=== PATIENT | female | born 1935 | race Hispanic/Latino ===

== ENCOUNTER 2020-05-20 00:38 | Emergency (ER) | payer MEDICARE ==
[2020-05-20] MEDS ORDERED: Boostrix 0.5 ML VIAL ONE ×2 (01:07→01:23)
[2020-05-20] MEDS ORDERED: Lidocaine 1% w/Epinephrine 1:100K 20 ML VIAL ONE (02:16)
--- NOTE | 2020-05-20 07:47 | CT ---
PRELIMINARY REPORT/[facility]/EMERGENCY AFTER HOURS PROCEDURE: EXAM: CT Head Without Intravenous Contrast. 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 PT HIT BACK OF HEAD AND C/O PAIN ON BACK OF HEAD . SMALL LAC ON BACK OF HEAD, BLEEDING CONTROLLED. DENIES LOC. LOWER BACK PAIN TECHNIQUE: Axial computed tomography images of the head/brain without intravenous contrast. COMPARISON: None provided. FINDINGS: BRAIN: No acute intraparenchymal hemorrhage. No mass lesion. No CT evidence for acute territorial inf arct. No midline shift or extra-axial collection. Mild white matter change. VENTRICLES: No hydrocephalus. ORBITS: The orbits are unremarkable. SINUSES AND MASTOIDS: The paranasal sinuses and mastoid air cells are clear. SOFT TISSUES: Right parietal scalp laceration. No radiopaque foreign body is seen. BONES: No acute skull fracture. IMPRESSION: No acute intracranial traumatic injury. ELECTRONICALLY SIGNED BY: Hugh Gomez MD May 20, 2020 2:13:11 AM CDT FINAL REPORT: EMERGENCY AFTER HOURS STUDY CT BRAIN NONCONTRAST: DATE: 05/20/2020. TIME: 1:32 AM. HISTORY: An 85-year-old female status post acute blunt head trauma from fall. FINDINGS: There is no evidence of acute intra-axial or extra-axial hemorrhage. There is no midline shift or any other mass effect. There is no extra-axial fluid collection. There is no evidence of obstructive hydrocephalus. Calvarium is intact. There is diffuse brain parenchymal volume loss. There are low att enuation areas in the white matter. These are nonspecific, but in a patient of this age, they are probably chronic ischemic white matter changes due to microvascular atherosclerosis. Agree with preli minary report by [facility]. IMPRESSION: 1) No acute intracranial findings. 2) involutional changes and chronic ischemic white matter changes. Transcribed Date/Time: 05/20/2020 7:52 AM
--- NOTE | 2020-05-20 07:50 | CT ---
PRELIMINARY REORT/[facility]/EMERGENCY AFTER HOURS PROCEDURE: EXAM: CT Cervical Spine Without Intravenous Contrast. 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 PT HIT BACK OF HEAD AND C/O PAIN ON BACK OF HEAD . SMALL LAC ON BACK OF HEAD, BLEEDING CONTROLLED. DENIES LOC. LOWER BACK PAIN TECHNIQUE: Axial computed tomography images of the cervical spine without intravenous contrast. Sagit dorota and coronal reformations performed. COMPARISON: None provided. FINDINGS: BONES: No acute fracture or focal osseous lesion. Bony alignment is anatomic. Osteopenia. DISCS / DEGENERATIVE CHANGES: Degenerative disc disease with foraminal narrowing and spinal stenosis at several levels. SOFT TISSUES: No prevertebral soft tissue swelling. No apical pneumothorax. Biapical mild pleural parenchymal scarring. IMPRESSION: No acute cervical spine fracture. ELECTRONICALLY SIGNED BY: Hugh Gomez MD May 20, 2020 2:20:21 AM CDT FINAL REPORT EMERGENCY AFTER HOURS STUDY CT CERVICAL SPINE NONCONTRAST: DATE:05/20/2020 TIME: 1:31 AM. HISTORY: cervical trauma: An 85-year-old female status post fall FINDINGS: There are no jumped or perched facets. There is no evidence of acute fracture. The vertebral body hei ghts are maintained. There is no prevertebral soft tissue swelling. Agree with preliminary report by [facility]. IMPRESSION: No evidence of acute fracture or acute traumatic subluxation. Transcribed Date/Time: 05/20/2020 7:56 AM
--- NOTE | 2020-05-20 08:40 | CT ---
PRELIMINARY REPORT/[facility]/EMERGENCY AFTER HOURS PROCEDURE: EXAM: CT Lumbar Spine Without Intravenous Contrast. 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 PT HIT BACK OF HEAD AND C/O PAIN ON BACK OF HEAD. SMALL LAC ON BRUNILDA K OF HEAD, BLEEDING CONTROLLED. DENIES LOC. LOWER BACK PAIN TECHNIQUE: Axial computed tomography images of the lumbar spine without intravenous contrast. Sagittal and coron al reformations performed. COMPARISON: None provided. FINDINGS: BONES: Old compression fractures of L1-L4. Mild right curvature. DISCS/DEGENERATIVE CHANGES: Degenerative disc disease with foraminal narrowing and spinal stenosis at most lumbar levels. SOFT TISSUES: The paraspinal soft tissues are unremarkable. Prominent atherosclerosis. IMPRESSION: No acute lumbar spine fracture. Old compression fractures of L1-L4. Mild right curvature. Degenerative disc disease with foraminal narrowing and spinal stenosis at most lumbar levels. ELECTRONICALLY SIGNED BY: Hugh Gomez MD May 20, 2020 2:25:43 AM CDT This report is intended for review by the ordering physician only, in accordance of law. If you recei ve this report in error, please call [facility] at [phone]. FINAL REPORT CT LUMBAR SPINE: Mild anterior wedging of L1. Moderately severe compression deformities at L2, L3, and L4 vertebrae. L5 vertebra maintains height. There is osteopenia. Degenerative disk changes with vacuum phenomenon at L1-2. These compression deformities are most likely old as noted on the preliminary report. The L2 rabia wilmer is somewhat age-indeterminate. There is retropulsion of a posterior superior corner of the L2 v ertebra which does compress the thecal sac. This results in mild to moderate central canal stenosis. I am in agreement with the preliminary report. POS: [facility]
== END 2020-05-20 02:37 | disposition home or self-care (01) ==
LOC: ERS 00:38
DX: S01.01XA Laceration without foreign body of scalp, initial encounter (principal); M54.5 Low back pain; I10 Essential (primary) hypertension; Z79.899 Other long term (current) drug therapy; W18.30XA Fall on same level, unspecified, initial encounter
CPT/HCPCS: 12001; 70450; 72125; 72131; 90471; 90715

== ENCOUNTER 2020-05-27 19:57 | Inpatient (IN) | payer MEDICARE, OTHER ==
[2020-05-27 20:49] LABS: #Basophils 0.1 thou/uL (0.0-0.2); #Eosinphils 0.1 thou/uL (0.0-0.7); #Lymphocytes 1.3 thou/uL (1.20-3.40); #Monocytes 0.6 thou/uL (0.11-0.59); #Neutrophils 6.2 thou/uL (1.40-6.50); %Basophils 0.7 % (0.0-1.0); %Eosinophils 1.8 % (0.0-10.0); %Lymphocytes 15.4 % (21.0-51.0); %Monocytes 6.9 % (0.0-10.0); %Neutrophils 75.2 % (42.0-75.0); Hemoglobin 12.6 g/dL (12.0-16.0); Mean Corpuscular HGB CONC 34.1 g/dL (32.0-36.0); Mean Corpuscular Hemoglobin 31.5 pg (27.0-31.0); Mean Corpuscular Volume 92.3 fL (78.0-98.0); Mean Platelet Volume 6.2 fL (7.4-10.4); Platelet Count 348 thou/uL (130-400); RBC Distribution Width 10.9 % (11.5-14.5); Red Blood Cell (RBC) Count 3.99 mill/uL (4.20-5.40); White Blood Cell (WBC) Count 8.3 thou/uL (4.8-10.8)
[2020-05-27] MEDS ORDERED: Ondansetron PF 4 MG/2 ML Vial ONE (20:53)
[2020-05-27] MEDS ORDERED: Ketamine 50 MG/ML (10ML VIAL) ONE (21:00)
[2020-05-27] MEDS ORDERED: Rocuronium Bromide 10 MG/ML (10ML VIAL) ONE (21:00)
[2020-05-27] MEDS ORDERED: EPINEPHrine 1 MG/10 ML Abboject SYRINGE ONE (21:07)
[2020-05-27 21:12] LABS: ALT (SGPT) 10 U/L (8-55); AST (SGOT) 22 U/L (5-34); Albumin 4.2 g/dL (3.4-4.8); Alkaline Phosphatase 73 U/L (40-110); Anion Gap 14 mmol/L (10-20); BUN (Urea Nitrogen) 14 mg/dL (9.8-20.1); Bilirubin, Total 0.4 mg/dL (0.2-1.2); Calc. Creatinine Clearance 0 mL/min (70-130); Carbon Dioxide 27 mmol/L (23-31); Chloride 97 mmol/L (98-107); Estimated GFR-MDRD 73; Globulin 3.1 g/dL (2.4-3.5); Glucose 114 mg/dL (83-110); Potassium 3.5 mmol/L (3.5-5.1); Protein, Total 7.3 g/dL (6.0-8.3); Sodium 134 mmol/L (136-145)
--- NOTE | 2020-05-27 21:23 | CT ---
CT OF BRAIN PERFORMED WITHOUT CONTRAST ENHANCEMENT: 05/27/20 HISTORY: Fall with head injury. COMPARISON: A 05/20/20 study. There has been development of a large intraparenchymal hemorrhage which is in the left posterior fron dorota region. It measures 5.2 cm in maximum dimension. There is a fairly extensive interventricular blo od also noted. There is no significant mass effect associated with this. The mastoid air cells and vi sualized sinuses are clear. IMPRESSION: Large intraparenchymal hemorrhage involving the left posterior frontal region also with moderate inte rventricular blood. No significant shift of midline structures seen at this time. Findings telephoned to Dr. Marr. [place]: [facility]
--- NOTE | 2020-05-27 21:27 | CT ---
CT OF CERVICAL SPINE PERFORMED WITHOUT CONTRAST ENHANCEMENT: 05/27/20 HISTORY: Fall with neck pain. Vertebral bodies are normal in height. Disc spaces are relatively well preserved. Minimal disc narrow ing in the lower cervical spine. Degenerative facet changes. The facets are in normal alignment. The re is no significant canal stenosis and no CT evidence of fracture. Carotid bulb calcifications are s een. Lung apices are clear. IMPRESSION: No CT evidence of fracture of the cervical spine. POS: [facility]
[2020-05-27] MEDS ORDERED: niCARdipine 25 MG in Sodium Chloride 0.9% 250 ML 240 ML IVPB SCH (21:30)
--- NOTE | 2020-05-27 21:48 | RAD ---
PORTABLE CHEST: 05/27/20 HISTORY: Intubation. Endotracheal and NG tubes are in satisfactory position. Heart size is within normal limits. There are atherosclerotic changes of the aorta. Lungs are clear of any infiltrative process. IMPRESSION: No acute infiltrates. Endotracheal and NG tubes in satisfactory position. POS: [facility]
[2020-05-27] MEDS ORDERED: Electrolyte Replacement Protoc 1 EACH EACH IVPB PRN (21:50)
[2020-05-27] MEDS ORDERED: Ondansetron PF 4 MG/2 ML Vial IVP PRN (21:50)
[2020-05-27] MEDS ORDERED: Docusate 100 MG CAP PO PRN (21:50)
[2020-05-27] MEDS ORDERED: niCARdipine 25 MG in Sodium Chloride 0.9% 250 ML 250 ML IVPB PRN (21:50)
[2020-05-27] MEDS ORDERED: Milk Of Magnesia 30 ML UDCUP PO PRN (21:50)
[2020-05-27] MEDS ORDERED: Bisacodyl 10 MG SUPP PR PRN (21:50)
--- NOTE | 2020-05-27 21:50 | RAD ---
AP PELVIS: 05/27/20 HISTORY: Fall. Bones are demineralized. The pelvic ring is intact. Arthritic changes of the lower lumbar spine are s een. IMPRESSION: No evidence of fracture. POS: [facility]
[2020-05-27 21:53] LABS: Actual Bicarbonate (HCO3a) 25.3 mEq/L (22-28); Analyzer IN Cardio ER; Base Excess (BEa) 3.7 mEq/L (-2.0 to +3.0); CO2 Tension 29.4 mmHg (35.0-45.0); Calcium, Ionized (arterial) 1.12 mmol/L (1.12-1.30); Carboxyhemoglobin (COHb) 0.3 gm% (0.0-3.0); Hemoglobin (Hb) 13.1 g/dL (12.0-16.0); O2 Tension (PaO2), arterial 185.4 mmHg (> 60.0); Potassium - ABG Lab 2.99 mmol/L (3.70-5.30)
[2020-05-27 22:11] LABS: Bilirubin Negative (Negative); Blood, Urine Negative (Negative); Clarity Clear (Clear); Glucose, Urine (Dipstick) Normal (Negative); Ketone, Urine Negative (Negative); Leukocyte Negative Leu/uL (Negative); Nitrite Negative (Negative); Protein, Urine (Dipstick) Negative (Neg-Trace); Specific Gravity, Urine 1.011 (1.002-1.036); Urobilinogen Normal mg/dL (Less than 2)
--- NOTE | 2020-05-27 22:51 | HP ---
HISTORY OF PRESENT ILLNESS: Ms. Dominguez is an 85-year-old woman who presents to the emergency department via EMS after being found down unresponsive at home by her daughter earlier this evening and reported that the patient had a fall 1 week ago that resulted in a laceration to the occipital scalp. Lower Brule were placed and removed this morning and she had been doing quite well. Head CT from a week ago shows no active areas of hemorrhage. She also states that reportedly the patient has history of hypertension and takes medications for this purpose. She is not on any blood thinning medications according to family, although etodolac is in her medical history. CT scan of the brain was performed upon presentation to the emergency department, it shows a large left frontoparietal hemorrhage extending from the deep white matter structures with extension of the bilateral lateral ventricles, hemorrhage volume is estimated at 40 to 48 mL. There is subtle midline shift and minimal surrounding vasogenic edema. The patient's systolic pressures upon presentation is 185 systolic, but has been started on Cardene and we had seen a steady drop to a point where upon my presentation at bedside, she is in the 170s and then the second reading in the 160s. PAST MEDICAL HISTORY: Significant for hypertension and chronic pain syndrome. ALLERGIES: NO KNOWN DRUG ALLERGIES. CURRENT MEDICATIONS: Etodolac. PHYSICAL EXAMINATION: NEUROLOGIC: The patient is intubated with no motor interaction of brainstem reflexes, although the patient did receive paralytics for rapid sequence intubation briefly before my arrival to the emergency department, so this time, we do not have a reliable neurologic examination for baseline comparison. GCS for this purpose would grade a 3T. ASSESSMENT: Acute intraventricular and intracerebral hemorrhage. PLAN: I had a raoul discussion with family members at bedside, 2 daughters and then other family on phone. This likely represents a brain hemorrhage and the patient's outcome although guarded at the moment, is likely poor potentially fatal. I discussed her prognostic indicators given her age and size of hemorrhage and location of this unfortunately points a poor outcome. I did discuss plan for this evening, which would be to admit to the ICU with close monitoring q.1 hour neuro checks, maintenance of systolic blood pressures below 140 and repeat scanning 6 hours from now. I had a brief discussion regarding possible development of hydrocephalus and need for external ventricular drain, but we will cross the bridge if we have to. I do not believe if there is any additional surgical intervention is warranted for this patient's care. We will consult the hospitalist service and then the critical care team service for her stay in the hospital for assistance in ventilator management more in-depth discussion with family regarding the patient's care tomorrow. Once her legs have worn off, we will have a repeat scan. Job ID: [id number]
[2020-05-27 23:13] LABS: pH, Arterial 7.55 (7.35-7.45)
[2020-05-27 23:14] LABS: Puncture Site LRA
[2020-05-27] MEDS: Sodium Chloride 0.9% 1,000 ML IV SCH (23:30)
[2020-05-28] MEDS: Diltiazem HCl 125 MG, Admixture Fee 1 EACH in Sodium Chloride 0.9% 100 ML IVPB SCH (01:00)
[2020-05-28] MEDS ORDERED: Sodium Chloride 0.9% 500 ML IV SCH (01:15)
[2020-05-28] MEDS ORDERED: Sodium Chloride 0.9% 500 ML IVPB SCH (01:15)
--- NOTE | 2020-05-28 01:40 | PDOC.CONS ---
- Consultation Encounter Date: 05/28/20 Encounter Time: 01:33 Consulting provider: Rosailo Corley Reason for consult: Rapid heart rate. CC: Unresponsiveness HPI: 85-year-old woman with a history of hypertension and chronic pain syndrome brought to the emergency department because patient was found unresponsive at home. She is status post fall a week prior. CT head and in the emergency department demonstrated large left frontoparietal hemorrhage extending into the lateral ventricle with subtle midline shift and surrounding vasogenic edema. Patient subsequently admitted to the neurosurgery service. She was started on nicardipine drip for elevated systolic blood pressure up to the 180s. Consult is placed for the hospitalist team to help manage rapid heart rate. Patient blood pressure has improved to the point she was borderline hypotensive when I saw her in the CCU. She is of the nicardipine drip. Heart rate is in the 180s. She is intubated and on mechanical ventilation. EKG demonstrated wide complex tachycardia. Patient remained unresponsive. Past medical history: Hypertension, chronic pain syndrome Past surgical history: None Allergies: No known drug allergies Medications: Bisacodyl (Bisacodyl 10 Mg Supp) 10 mg VA DAILYPRN PRN PRN Reason: Constipation Docusate Sodium (Docusate 100 Mg Cap) 100 mg PO BIDPRN PRN PRN Reason: Constipation Famotidine (Famotidine/Pf 20 Mg/2ml Vial) 20 mg SLOW IVP Q12HR ANGIE Nicardipine HCl 25 mg/ Sodium (Chloride) 250 mls @ 25 mls/hr IVPB INF ANGIE; Protocol Sodium Chloride (Normal Saline 0.9%) 1,000 mls @ 65 mls/hr IV .[id number] ANGIE Last Admin: 05/27/20 23:30 Dose: 1,000 mls Documented by: Nicardipine HCl 25 mg/ Sodium (Chloride) 260 mls @ 0 mls/hr IVPB INF PRN; Protocol PRN Reason: SBP > 140 Diltiazem HCl 125 mg/Miscellaneous Medication 1 each/ Sodium Chloride 125 mls @ 0 mls/hr IVPB INF ANGIE; Protocol Last Admin: 05/28/20 01:00 Dose: 125 mls Documented by: Fentanyl Citrate 2,000 mcg/ (Sodium Chloride) 100 mls @ 0 mls/hr IV INF ANGIE; Protocol Stop: 06/27/20 04:45 Fentanyl Citrate (Fentanyl Bolus) 250 mls @ 0 mls/hr IVPB PRN PRN PRN Reason: Breakthrough pain/agitation Stop: 06/27/20 04:45 Lorazepam (Lorazepam 2 Mg/Ml Vial) 2 mg SLOW IVP Q1H PRN PRN Reason: Breakthrough agitation Stop: 06/27/20 04:45 Magnesium Hydroxide (Milk Of Magnesia 30 Ml Udcup) 30 ml PO BIDPRN PRN PRN Reason: Constipation Miscellaneous Medication (Electrolyte Replacement Protoc 1 Each Each) 1 each IVPB PRN PRN PRN Reason: ELECTROLYTE Morphine Sulfate (Morphine 2 Mg/Ml Vial) 2 mg SLOW IVP Q1H PRN PRN Reason: Breakthrough Pain/Agitation Stop: 06/27/20 04:45 Ondansetron HCl (Ondansetron Pf 4 Mg/2 Ml Vial) 4 mg IVP BIDPRN PRN PRN Reason: Nausea/Vomiting Propofol (Propofol 1,000 Mg/100 Ml Vial) 1,000 mg IV INF PRN; Protocol PRN Reason: TO ACHIEVE GOAL RASS Stop: 06/27/20 04:45 Last Admin: 05/28/20 04:35 Dose: 1,000 mg Documented by: Propofol (Propofol Bolus 1,000 Mg/100 Ml Vial) 20 mg IV Q5MIN PRN PRN Reason: BREAKTHROUGH AGITATION Stop: 06/27/20 04:45 Sodium Chloride (Flush - Normal Saline 10 Ml Syringe) 10 ml IVF PRN PRN PRN Reason: Saline Flush Family history: Reviewed and noncontributory Social history: Non-smoker, does not drink alcohol. No illicit drug use. Review of systems Unable to obtain due to unresponsiveness. Physical examination: General: Unresponsive, not in acute distress. Frail-appearing. HEENT: Intubated and on mechanical ventilation. PERRLA, anicteric sclera. Neck: Supple, no elevated JVD. Lungs: Clear to auscultation bilaterally. No rhonchi, no rales, no crackles. Heart: S1-S2 heard, rapid, no murmur no gallop no rub. Abdomen: Soft, nontender, nondistended, no hepatosplenomegaly. Extremities: No pedal edema. No deformity. Neuro: Unresponsive, moves all extremities spontaneously. Psychiatry: Unresponsive. Not agitated. Skin: No rashes, no lesions. A/P: 1. Wide-complex tachycardia: Likely reactive. Patient is off nicardipine drip. We will give a trial of normal saline bolus followed by Cardizem drip if no improvement. Obtain echocardiogram. Would recommend cardiology consult. Optimize electrolytes. Check magnesium level and replete accordingly. 2. Intracranial/intracerebral hemorrhage: Management per primary team. Family is leaning towards no escalation of care. May need palliative care consult to discuss goals of care. 3. Hypertension: Blood pressure improved with nicardipine drip and now she is borderline hypotensive. Trial of normal saline bolus. Monitor blood pressure closely.
[2020-05-28 03:46] LABS: #Lymphocytes 0.5 thou/uL (1.20-3.40); #Monocytes 0.5 thou/uL (0.11-0.59); #Neutrophils 12.4 thou/uL (1.40-6.50); %Basophils 0.1 % (0.0-1.0); %Eosinophils 0.1 % (0.0-10.0); %Lymphocytes 3.5 % (21.0-51.0); %Monocytes 3.7 % (0.0-10.0); %Neutrophils 92.6 % (42.0-75.0); Hemoglobin 12.2 g/dL (12.0-16.0); Mean Corpuscular HGB CONC 35.1 g/dL (32.0-36.0); Mean Corpuscular Hemoglobin 32.2 pg (27.0-31.0); Mean Corpuscular Volume 91.7 fL (78.0-98.0); Mean Platelet Volume 6.3 fL (7.4-10.4); Platelet Count 335 thou/uL (130-400); RBC Distribution Width 10.9 % (11.5-14.5); Red Blood Cell (RBC) Count 3.78 mill/uL (4.20-5.40); White Blood Cell (WBC) Count 13.4 thou/uL (4.8-10.8)
[2020-05-28 03:59] LABS: Anion Gap 15 mmol/L (10-20); BUN (Urea Nitrogen) 13 mg/dL (9.8-20.1); Calc. Creatinine Clearance 39 mL/min (70-130); Calcium 9.1 mg/dL (7.8-10.44); Carbon Dioxide 25 mmol/L (23-31); Chloride 97 mmol/L (98-107); Estimated GFR-MDRD 73; Glucose 154 mg/dL (83-110); Potassium 3.1 mmol/L (3.5-5.1); Sodium 134 mmol/L (136-145)
[2020-05-28] MEDS ORDERED: Propofol 1,000 MG/100 ML VIAL IV ONE (04:29)
[2020-05-28] MEDS: Propofol 1,000 MG/100 ML VIAL IV PRN ×2 (04:35→19:37)
[2020-05-28] MEDS ORDERED: Propofol BOLUS 1,000 MG/100 ML VIAL IV PRN (04:45)
[2020-05-28] MEDS ORDERED: Fentanyl BOLUS 250 ML IVPB PRN (04:45)
[2020-05-28] MEDS ORDERED: fentaNYL Citrate/PF 2,000 MCG in Sodium Chloride 0.9% 60 ML IV SCH (04:45)
[2020-05-28] MEDS ORDERED: Magnesium 2 GM/50 ML 2 GM in Premix Bag 1 BAG IVPB SCH (06:30)
--- NOTE | 2020-05-28 07:28 | CT ---
PRELIMINARY REPORT/[facility]/EMERGENCY AFTER HOURS PROCEDURE EXAM: CT Head Without Intravenous Contrast. CLINICAL HISTORY: FOLLOW UP Intracerebral hemorrhagic stroke TECHNIQUE: Axial computed tomography images of the head/brain without intravenous contrast. COMPARISON: CTSR - CT BRAIN WO CON - 05/27/2020 08:[address] - CT BRAIN WO CON - 05/20/2020 01:28 AM CDT FINDINGS: BRAIN: Again seen is a large left intraparenchymal hemorrhage measuring up to 5.2 cm in maximum direction, i n the left frontoparietal lobe extending into the region of the left basal ganglia. There is surrounding vasogenic edema and effacement of the sulci. There is no significant midline shift. Again seen are foci of subarachnoid hemorrhage at the last vertex. VENTRICLES: There is a large amount of intraventricular hemorrhage in the bilateral lateral ventricles. There is no change in morphology of the ventricles compared to prior. No hydronephrosis. ORBITS: The orbits are unremarkable. SINUSES AND MASTOIDS: The paranasal sinuses and mastoid air cells are clear. SOFT TISSUES: No significant facial or scalp soft tissue swelling evident. No radiopaque foreign body is seen. BONES: No acute skull fracture. IMPRESSION: Large left intraparenchymal hemorrhage with intraventricular extension. No significant change compar ed to 05/27/2020. No new intracranial hemorrhage. No hydrocephalus. ELECTRONICALLY SIGNED BY: Taylor Stephenson MD May 28, 2020 4:50:08 AM CDT This report is intended for review by the ordering physician only, in accordance of law. If you recei ve this report in error, please call [facility] at [phone]. FINAL REPORT Exam: Head CT without contrast HISTORY: Hemorrhage. Stroke. COMPARISON: 05/27/2020 FINDINGS: Hemorrhage: Redemonstration of essentially stable intraparenchymal, extra-axial and intraventricular hemorrhage. Brain parenchyma: Stable vasogenic edema as well as chronic small vessel ischemic changes of the whit e matter. There is persistent mass effect upon the left cerebrum. Ventricular system: Stable configuration of ventricular system. Calvarium: Intact. Sinuses and mastoid air cells: Adequate aeration. IMPRESSION: 1. This report is in agreement with initial report by [facility]. 2. Essentially stable intracranial hemorrhage. No significant interval change. Transcribed Date/Time: 05/28/2020 7:49 AM
--- NOTE | 2020-05-28 07:30 | PRG ---
DATE OF SERVICE: 05/28/2020 Ms. Dominguez is an 85-year-old female found unresponsive and down by her family members. She presented to the ER, where she had a head CT, which shows evidence of a large intracerebral hemorrhage on the left frontal and temporal region with intraventricular extension. There is associated mass effect. She is intubated and is currently in the ICU. I did review the evaluation and assessment was performed by Joseph Corley, and agree with his findings. This is a hemorrhage, which is not amenable to surgical treatment. We will maximize medical management and treat it with osmotic agents as necessary. She currently has a very poor neurologic exam and I believe this will be a very difficult hemorrhage for her to recover from. Job ID: [id number] [facility]
[2020-05-28] MEDS: Potassium Chloride 20 MEQ in Premix Bag 1 BAG IVPB SCH ×2 (08:04→10:03)
[2020-05-28 08:09] LABS: Actual Bicarbonate (HCO3a) 22.6 mEq/L (22-28); Base Excess (BEa) 0.4 mEq/L (-2.0 to +3.0); CO2 Tension 29.1 mmHg (35.0-45.0); Calcium, Ionized (arterial) 1.11 mmol/L (1.12-1.30); Carboxyhemoglobin (COHb) 0.3 gm% (0.0-3.0); Hemoglobin (Hb) 12.3 g/dL (12.0-16.0); O2 Tension (PaO2), arterial 187.2 mmHg (> 60.0); Potassium - ABG Lab 3.44 mmol/L (3.70-5.30); pH, Arterial 7.51 (7.35-7.45)
[2020-05-28] MEDS: Famotidine/PF 20 mg/2ml Vial SLOW IVP SCH (08:59)
[2020-05-28] MEDS: niCARdipine 25 MG in Sodium Chloride 0.9% 250 ML 240 ML IVPB PRN ×3 (10:12→17:38)
[2020-05-28 10:55] LABS: ALV-art Gradient 61.625 mmHg (0-20)
[2020-05-28] MEDS: Sodium Chloride 0.9% 1,000 ML IV SCH (12:47)
--- NOTE | 2020-05-28 15:35 | PDOC.HOSPP ---
- Subjective Subjective: Remains intubated. Discussed with daughter at bedside. They are considering comfort cares. - Objective Vital Signs & Weight: Vital Signs (12 hours) Temp Pulse Resp BP Pulse Ox 05/28/20 14:54 75 118/46 L 05/28/20 14:00 14 05/28/20 12:00 98.4 F 14 05/28/20 10:43 75 126/53 L 05/28/20 10:00 11 L 05/28/20 08:00 17 100 05/28/20 07:53 92 125/58 L 05/28/20 07:00 99.3 F 05/28/20 06:00 12 05/28/20 04:00 25 H Weight Admit Weight 97 lb Weight 97 lb 7.109 oz Most Recent Monitor Data Heart Rate from ECG 85 NIBP 124/51 NIBP BP-Mean 75 Respiration from ECG 15 SpO2 100 I&O: 05/27/20 05/28/20 05/29/20 06:59 06:59 06:59 Intake Total 1141.3 0 Output Total 1035 335 Balance 106.3 -335 Result Diagrams: 05/28/20 03:29 05/28/20 03:29 Additional Labs: Accuchecks 05/28/20 05/28/20 05/27/20 12:07 01:54 20:10 POC Glucose 139 H 143 H 106 H Radiology Reviewed by me: Yes EKG Reviewed by me: Yes Hospitalist ROS - Medication Medications: Active Medications Generic Name Dose Route Start Last Admin Trade Name Freq PRN Reason Stop Dose Admin Famotidine 20 mg 05/28/20 09:00 05/28/20 08:59 Famotidine/Pf 20 Mg/2ml Vial SLOW IVP 20 mg 0900 ANGIE Administration Sodium Chloride 1,000 mls @ 65 mls/hr 05/27/20 22:00 05/28/20 12:47 Normal Saline 0.9% IV 1,000 mls .[id number] ANGIE Administration Diltiazem HCl 125 mg/ 125 mls @ 0 mls/hr 05/28/20 00:45 05/28/20 01:00 Miscellaneous Medication 1 IVPB 125 mls each/ Sodium Chloride INF ANGIE Administration Protocol As Directed Nicardipine HCl 25 mg/ Sodium 250 mls @ 0 mls/hr 05/28/20 07:30 05/28/20 12:56 Chloride IVPB 250 mls INF PRN Administration SBP > 140 Protocol Titrate Propofol 1,000 mg 05/28/20 04:45 05/28/20 04:35 Propofol 1,000 Mg/100 Ml Vial IV 06/27/20 04:45 1,000 mg INF PRN Administration TO ACHIEVE GOAL RASS Protocol - Exam General - other findings: pt remains intubated Eye: PERRL ENT: normocephalic atraumatic Heart: RRR Respiratory: CTAB Gastrointestinal: soft Extremities: no cyanosis Skin: normal turgor Neurological: cranial nerve grossly intact Musculoskeletal: normal tone Psychiatric: normal affect Hosp A/P - Plan This is an unfortunate 85 years old female who has significant past medical history of hypertension who was found unresponsive at home, she was status post fall about weeks ago prior to admission. Initial work-up in the ED, CT brain showed large intraparenchymal parenchymal hemorrhage involving the left posterior frontal region associated with moderate intraventricular blood. Patient was admitted to ICU under neurosurgery service. Hospitalist was consulted for wide-complex tachycardia. Intracranial hemorrhage --not amenable for surgical intervention per neurosurgery --family is considering comfort cares. will consult palliative care to address goal of cares. --poor prognosis Wide-complex tachycardia - resolved. --rate controlled with Cardizem gtt. Dion repleted. NSR on tele. --monitor. Labs in AM Uncontrolled hypertension --pt is now off cardene gtt. BP now well controlled. Acute hypoxic respiratory failure --Pul consult to help with vent mgt. DVT ppx: Contraindicated GI ppx: Continue Pepcid Code Status: DNR Anticipated Dispo: TBD, family is considering comfort cares.
[2020-05-28 16:26] LABS: Potassium 4.7 mmol/L (3.5-5.1)
--- NOTE | 2020-05-28 17:31 | EKG ---
Test Reason : STAT Blood Pressure : / mmHG Vent. Rate : 186 BPM Atrial Rate : 187 BPM P-R Int : 000 ms QRS Dur : 144 ms QT Int : 248 ms P-R-T Axes : 000 079 053 degrees QTc Int : [address] depression Abnormal ECG When compared with ECG of 28-MAY-2020 00:44, (Unconfirmed) No significant change was found Confirmed by DR. Raysa MONTIEL ([id number]) on 05/28/2020 5:31:36 PM Referred By: ANGEL Confirmed By:DR. Raysa MONTIEL
--- NOTE | 2020-05-28 20:58 | CON ---
DATE OF CONSULTATION: 05/28/2020 HISTORY OF PRESENT ILLNESS: Sandra Dominguez is an 85-year-old female who has a parenchymal brain hemorrhage with ventricular extension. Apparently, she was found down by her daughter. She apparently fell a week earlier, but followup head CT with head injury did not show any hemorrhage. She is not cooperative to exam or questionings. She was intubated. PAST MEDICAL HISTORY: Remarkable for hypertension. FAMILY HISTORY: Negative for lung disease in early age. She is a nonsmoker and nondrinker. REVIEW OF SYSTEMS: Not obtainable. PHYSICAL EXAMINATION: VITAL SIGNS: She is afebrile, respiratory rate is 20, FiO2 is 40, blood pressure 124/73, heart rate is in the 90s. GENERAL: She does not open her eyes to voice or command. sternal rub. She has minimal manipulation of her endotracheal tube. LUNGS: Remarkable for coarse equal breath sounds. HEART: Regular rhythm. ABDOMEN: Soft. EXTREMITIES: Without edema. Neurosurgeons have stated she has very poor prognosis. LABORATORY DATA: White count 13.4, hemoglobin 12.2, and platelets 335. Sodium 134, potassium 3.1, chloride 97, bicarb 25, BUN 13, creatinine 0.76. PH 7.51, pCO2 29, and PO2 187. IMPRESSION: Brain hemorrhage with a very poor prognosis. Family wants her to be a DNR. I met with one daughter at bedside and I met with all the daughters plus a sister and answered all their questions. There are two people on 2 different phones listening in as well. They want to get together as a family and decide about withdrawal of support. They all quickly acknowledge that she would not want to continue like this. I have explained that if they were to proceed aggressively, she would have a trach, a PEG, long-term care hospitalization followed by retirement if she survived the initial part of this. They all acknowledge that she would not want that. CRITICAL CARE TIME: 30 minutes, independent with family meeting. Job ID: [id number] [facility]
[2020-05-29 04:18] LABS: Anion Gap 12 mmol/L (10-20); BUN (Urea Nitrogen) 10 mg/dL (9.8-20.1); Calc. Creatinine Clearance 50 mL/min (70-130); Calcium 8.5 mg/dL (7.8-10.44); Carbon Dioxide 22 mmol/L (23-31); Chloride 104 mmol/L (98-107); Estimated GFR-MDRD Greater than 90; Glucose 122 mg/dL (83-110); Potassium 3.7 mmol/L (3.5-5.1); Sodium 134 mmol/L (136-145)
[2020-05-29 04:56] VITALS: BMI 18.0
[2020-05-29] MEDS: Sodium Chloride 0.9% 1,000 ML IV SCH ×2 (08:15→20:37)
[2020-05-29] MEDS: Famotidine/PF 20 mg/2ml Vial SLOW IVP SCH (08:16)
--- NOTE | 2020-05-29 08:42 | PRG ---
DATE OF SERVICE: 05/29/2020 Ms. Dominguez is in the 3rd day of her hospital stay following intracerebral and intraventricular hemorrhage. Yesterday, she was much more alert . She is moving left upper extremity, bilateral lower extremities on the right as well. She was not following any commands, but she did have purposeful movement reaching for the tube and shaking her head. She could open the left eye, but not the right. Pupils at that time were equally round and reactive to light. This morning, her propofol is back on, so where she is somewhat less responsive. Gag is intact. Corneal reflex is intact. Pupils are still equally round and reactive to light. She quickly withdraws with all extremities, but does not localize to pain. I still feel that this is likely a terminal hemorrhage, given size, location, and her advanced age. Family has made the patient DNR and is looking to have a more formal conference regarding comfort care measures today. We will continue to follow along. Job ID: [id number]
[2020-05-29] MEDS: Morphine 2 MG/ML VIAL SLOW IVP PRN ×2 (09:58→14:06)
[2020-05-29] MEDS: Diltiazem HCl 125 MG, Admixture Fee 1 EACH in Sodium Chloride 0.9% 100 ML IVPB SCH (11:11)
[2020-05-29 12:46] LABS: SARS-CoV-2 MS2 Positive; SARS-CoV-2 N Gene Negative; SARS-CoV-2 S Gene Negative; SARS-CoV-2 by NAA Not Detected (NotDetected); SARS-CoV-2 orf1ab Negative
--- NOTE | 2020-05-29 13:07 | PRG ---
DATE OF SERVICE: 05/29/2020 SUBJECTIVE: Sandra Dominguez is clinically unchanged. She is mechanically ventilated. Her end polisher came to visit her. Apparently, she squeezed his hands possibly reflexively. He went out to tell the family that she was better. I have explained to the nursing staff to be relayed to the family that she is the same, not better and does not have any chance for getting better quickly if she survives this. OBJECTIVE: VITAL SIGNS: Blood pressure 130/53, heart rate 72, respiratory rates in the high teens. LUNGS: Clear. HEART: Regular rhythm. ABDOMEN: Soft. EXTREMITIES: Without edema. LABORATORY DATA: No new lab today other than electrolytes which are normal with the exception of sodium of 134. No blood gas today. IMPRESSION: Respiratory failure associated with a brain hemorrhage. Family is trying to decide about withdrawal of care. They all agree that she tracheostomy or PEG. She cannot go down the road without tracheostomy or PEG if they want long-term survival, but functional survival is very unlikely. This is relayed to the family multiple times yesterday. Job ID: [id number] [facility]
--- NOTE | 2020-05-29 15:48 | PDOC.HOSPP ---
- Subjective Subjective: Patient was seen examined, discussed with multiple family members at bedside. Also discussed with palliative care team. Family plan to withdraw care later this afternoon when all family members arrived - Objective Vital Signs & Weight: Vital Signs (12 hours) Temp Pulse Resp BP Pulse Ox 05/29/20 14:49 70 125/52 L 05/29/20 14:00 20 05/29/20 13:21 73 139/54 L 05/29/20 12:00 99.8 F H 21 H 05/29/20 11:47 72 138/53 L 05/29/20 10:00 20 05/29/20 08:00 100.1 F H 21 H 100 05/29/20 07:52 84 128/46 L 05/29/20 06:00 15 05/29/20 04:00 99 F 12 Weight Admit Weight 97 lb Weight 98 lb 12.273 oz Most Recent Monitor Data Heart Rate from ECG 67 NIBP 135/54 NIBP BP-Mean 81 Respiration from ECG 19 SpO2 100 I&O: 05/28/20 05/29/20 05/30/20 06:59 06:59 06:59 Intake Total 1141.3 2724 Output Total 1035 1220 370 Balance 106.3 1504 -370 Result Diagrams: 05/28/20 03:29 05/29/20 03:40 Radiology Reviewed by me: Yes EKG Reviewed by me: Yes Hospitalist ROS - Medication Medications: Active Medications Generic Name Dose Route Start Last Admin Trade Name Freq PRN Reason Stop Dose Admin Famotidine 20 mg 05/28/20 09:00 05/29/20 08:16 Famotidine/Pf 20 Mg/2ml Vial SLOW IVP 20 mg 0900 ANGIE Administration Sodium Chloride 1,000 mls @ 65 mls/hr 05/27/20 22:00 05/29/20 08:15 Normal Saline 0.9% IV 1,000 mls .[id number] ANGIE Administration Diltiazem HCl 125 mg/ 125 mls @ 0 mls/hr 05/28/20 00:45 05/29/20 11:11 Miscellaneous Medication 1 IVPB 125 mls each/ Sodium Chloride INF ANGIE Administration Protocol As Directed Nicardipine HCl 25 mg/ Sodium 250 mls @ 0 mls/hr 05/28/20 07:30 05/28/20 17:38 Chloride IVPB 250 mls INF PRN Administration SBP > 140 Protocol Titrate Morphine Sulfate 2 mg 05/28/20 04:45 05/29/20 14:06 Morphine 2 Mg/Ml Vial SLOW IVP 06/27/20 04:45 2 mg Q1H PRN Administration Breakthrough Pain/Agitation Propofol 1,000 mg 05/28/20 04:45 05/28/20 19:37 Propofol 1,000 Mg/100 Ml Vial IV 06/27/20 04:45 1,000 mg INF PRN Administration TO ACHIEVE GOAL RASS Protocol - Exam General - other findings: Patient remained intubated Eye: PERRL ENT: normocephalic atraumatic Neck: supple Heart: RRR Respiratory: CTAB Gastrointestinal: soft Extremities: no cyanosis Skin: normal turgor Neurological - other findings: Intubated and sedated Hosp A/P - Plan This is an unfortunate 85 years old female who has significant past medical history of hypertension who was found unresponsive at home, she was status post fall about weeks ago prior to admission. Initial work-up in the ED, CT brain showed large intraparenchymal parenchymal hemorrhage involving the left posterior frontal region associated with moderate intraventricular blood. Patient was admitted to ICU under neurosurgery service. Hospitalist was consulted for wide-complex tachycardia. Intracranial hemorrhage --not amenable for surgical intervention per neurosurgery --Family decided to withdraw care later this afternoon. Appreciate palliative care team --cont supportive cares until then Wide-complex tachycardia - resolved. --rate controlled with Cardizem gtt. Lytes repleted. NSR on tele. --monitor. Labs in AM Uncontrolled hypertension --pt is now off cardene gtt. BP now well controlled. Acute hypoxic respiratory failure --Pul consult to help with vent mgt. DVT ppx: Contraindicated GI ppx: Continue Pepcid Code Status: DNR Anticipated Dispo: TBD, family is considering comfort cares.
[2020-05-29] MEDS ORDERED: Scopolamine 1.5 mg/72 hour Patch TOP SCH (17:15)
[2020-05-29] MEDS ORDERED: Hyoscyamine Sulfate SL 0.125 mg Tablet SL PRN (17:16)
[2020-05-29] MEDS: Morphine 4 MG/ML VIAL SLOW IVP PRN (20:39)
[2020-05-29] MEDS: Lorazepam 2 MG/ML VIAL SLOW IVP PRN (20:40)
[2020-05-30] MEDS: Lorazepam 2 MG/ML VIAL SLOW IVP PRN ×2 (04:10→15:46)
[2020-05-30] MEDS: Morphine 4 MG/ML VIAL SLOW IVP PRN (04:10)
[2020-05-30] MEDS: Famotidine/PF 20 mg/2ml Vial SLOW IVP SCH (08:38)
[2020-05-30] MEDS: Sodium Chloride 0.9% 1,000 ML IV SCH (11:13)
--- NOTE | 2020-05-30 14:01 | PDOC.HOSPP ---
- Subjective Subjective: Patient was seen examined at bedside. Patient had transitioned to comfort care. Palliative care team at following. Discussed with family members at bedside. Patient appears to be comfortable she is not in acute distress. - Objective Vital Signs & Weight: Vital Signs (12 hours) Temp Pulse Resp BP Pulse Ox 05/30/20 07:58 98.5 F 85 22 H 175/74 H 93 L Weight Admit Weight 97 lb Weight 98 lb 12.273 oz Most Recent Monitor Data Heart Rate from ECG 88 NIBP 144/58 NIBP BP-Mean 86 Respiration from ECG 15 SpO2 84 I&O: 05/29/20 05/30/20 05/31/20 06:59 06:59 06:59 Intake Total 2724 868.2 Output Total 1220 1765 Balance 1504 -896.8 Result Diagrams: 05/28/20 03:29 05/29/20 03:40 Radiology Reviewed by me: Yes EKG Reviewed by me: Yes Hospitalist ROS - Medication Medications: Active Medications Generic Name Dose Route Start Last Admin Trade Name Freq PRN Reason Stop Dose Admin Lorazepam 2 mg 05/28/20 04:45 05/29/20 20:40 Lorazepam 2 Mg/Ml Vial SLOW IVP 06/27/20 04:45 2 mg Q1H PRN Administration Breakthrough agitation Lorazepam 1 mg 05/29/20 17:15 05/30/20 04:10 Lorazepam 2 Mg/Ml Vial SLOW IVP 1 mg Q4H PRN Administration Anxiety Morphine Sulfate 2 mg 05/28/20 04:45 05/29/20 14:06 Morphine 2 Mg/Ml Vial SLOW IVP 06/27/20 04:45 2 mg Q1H PRN Administration Breakthrough Pain/Agitation Morphine Sulfate 4 mg 05/29/20 17:15 05/30/20 04:10 Morphine 4 Mg/Ml Vial SLOW IVP 4 mg Q15MIN PRN Administration AIRHUNGER - Exam General Appearance: NAD General - other findings: sedated Eye: PERRL ENT: normocephalic atraumatic Neck: supple Heart: RRR Respiratory: CTAB Gastrointestinal: soft, non-tender Extremities: no cyanosis Skin: normal turgor Neurological - other findings: sedated Musculoskeletal: normal tone Psychiatric: normal affect, normal behavior, A&O x 3 Hosp A/P - Plan This is an unfortunate 85 years old female who has significant past medical history of hypertension who was found unresponsive at home, she was status post fall about weeks ago prior to admission. Initial work-up in the ED, CT brain showed large intraparenchymal parenchymal hemorrhage involving the left posterior frontal region associated with moderate intraventricular blood. Patient was admitted to ICU under neurosurgery service. Hospitalist was consulted for wide-complex tachycardia. Family decided to withdraw care, and transition to comfort care. Intracranial hemorrhage --not amenable for surgical intervention per neurosurgery --Family decided to withdraw aggressive cares --Cont comfort measures, palliative care is following Wide-complex tachycardia - resolved. --rate was controlled with cardizem gtt. now transitioned to comfort cares Uncontrolled hypertension --comfort care only Acute hypoxic respiratory failure --s/p compassionate extubation DVT ppx: Contraindicated GI ppx: Continue Pepcid Code Status: DNR Anticipated Dispo: Anticipate pt to soon
[2020-05-31] MEDS: Lorazepam 2 MG/ML VIAL SLOW IVP PRN (00:17)
[2020-05-31] MEDS: Morphine 4 MG/ML VIAL SLOW IVP PRN ×2 (02:56→23:28)
--- NOTE | 2020-05-31 13:27 | EKG ---
Test Reason : Blood Pressure : / mmHG Vent. Rate : 079 BPM Atrial Rate : 079 BPM P-R Int : 144 ms QRS Dur : 072 ms QT Int : 376 ms P-R-T Axes : 010 036 047 degrees QTc Int : 431 ms Normal sinus rhythm Junctional ST depression, probably normal Borderline ECG Confirmed by CRISTIAN KHANNA DO ([id number]), assignment editor BO KENNEDY ([id number]) on 05/31/2020 1:27:30 PM Referred By: Confirmed By:CRISTIAN KHANNA DO
--- NOTE | 2020-05-31 14:27 | PDOC.HOSPP ---
- Subjective Encounter Date: 05/31/20 Subjective: The patient is resting comfortably. - Objective Vital Signs & Weight: Vital Signs (12 hours) Temp Pulse Resp BP Pulse Ox 05/31/20 08:00 98.0 F 97 22 H 164/70 H 92 L Weight Admit Weight 97 lb Weight 98 lb 12.273 oz Most Recent Monitor Data Heart Rate from ECG 88 NIBP 144/58 NIBP BP-Mean 86 Respiration from ECG 15 SpO2 84 I&O: 05/30/20 05/31/20 06/01/20 06:59 06:59 06:59 Intake Total 868.2 Output Total 1765 1950 Balance -896.8 -1950 Result Diagrams: 05/28/20 03:29 05/29/20 03:40 Hospitalist ROS - Medication Medications: Active Medications Generic Name Dose Route Start Last Admin Trade Name Freq PRN Reason Stop Dose Admin Lorazepam 2 mg 05/28/20 04:45 05/31/20 00:17 Lorazepam 2 Mg/Ml Vial SLOW IVP 06/27/20 04:45 2 mg Q1H PRN Administration Breakthrough agitation Lorazepam 1 mg 05/29/20 17:15 05/30/20 15:46 Lorazepam 2 Mg/Ml Vial SLOW IVP 1 mg Q4H PRN Administration Anxiety Morphine Sulfate 2 mg 05/28/20 04:45 05/29/20 14:06 Morphine 2 Mg/Ml Vial SLOW IVP 06/27/20 04:45 2 mg Q1H PRN Administration Breakthrough Pain/Agitation Morphine Sulfate 4 mg 05/29/20 17:15 05/31/20 02:56 Morphine 4 Mg/Ml Vial SLOW IVP 4 mg Q15MIN PRN Administration AIRHUNGER - Exam General Appearance: ill appearing ENT: normocephalic atraumatic Neck: supple Heart: RRR Respiratory: normal chest expansion, no tachypnea Extremities: no cyanosis, no clubbing Hosp A/P - Plan "This is an unfortunate 85 years old female who has significant past medical history of hypertension who was found unresponsive at home, she was status post fall about weeks ago prior to admission. Initial work-up in the ED, CT brain showed large intraparenchymal parenchymal hemorrhage involving the left posterior frontal region associated with moderate intraventricular blood. Patient was admitted to ICU under neurosurgery service. Hospitalist was consulted for wide-complex tachycardia. Family decided to withdraw care, and transition to comfort care. Intracranial hemorrhage --not amenable for surgical intervention per neurosurgery --Family decided to withdraw aggressive cares --Cont comfort measures, palliative care is following Wide-complex tachycardia - resolved. --rate was controlled with cardizem gtt. now transitioned to comfort cares Uncontrolled hypertension --comfort care only Acute hypoxic respiratory failure --s/p compassionate extubation" 05/31: Continue comfort care measures. I met with the patient's family and addressed their questions and concerns.
[2020-05-31] MEDS: Morphine 2 MG/ML VIAL SLOW IVP PRN (17:35)
[2020-06-01] MEDS: Lorazepam 2 MG/ML VIAL SLOW IVP PRN (11:30)
--- NOTE | 2020-06-01 12:05 | PDOC.BPN ---
- Brief Progress Note Encounter Date: 06/01/20 Continue current comfort care measures with supplemental oxygen, morphine as needed for pain and lorazepam as needed for anxiety. Also continue hyoscyamine as needed for increased secretions. Recommend consulting hospice.
[2020-06-01] MEDS: Morphine 4 MG/ML VIAL SLOW IVP PRN (20:50)
--- NOTE | 2020-06-02 12:20 | PDOC.HOSPP ---
- Subjective Encounter Date: 06/02/20 non-verbal Subjective: The patient's work of breathing appears to be increasing. - Objective Vital Signs & Weight: Vital Signs (12 hours) Temp Pulse Resp BP Pulse Ox 06/02/20 08:00 94 L 06/02/20 07:51 99.2 F 107 H 28 H 107/51 L 94 L Weight Admit Weight 97 lb Weight 98 lb 12.273 oz Most Recent Monitor Data Heart Rate from ECG 88 NIBP 144/58 NIBP BP-Mean 86 Respiration from ECG 15 SpO2 84 I&O: 06/01/20 06/02/20 06/03/20 06:59 06:59 06:59 Output Total 1000 550 Balance -1000 -550 Result Diagrams: 05/28/20 03:29 05/29/20 03:40 Hospitalist ROS - Medication Medications: Active Medications Generic Name Dose Route Start Last Admin Trade Name Freq PRN Reason Stop Dose Admin Lorazepam 2 mg 05/28/20 04:45 06/01/20 11:30 Lorazepam 2 Mg/Ml Vial SLOW IVP 06/27/20 04:45 2 mg Q1H PRN Administration Breakthrough agitation Lorazepam 1 mg 05/29/20 17:15 05/30/20 15:46 Lorazepam 2 Mg/Ml Vial SLOW IVP 1 mg Q4H PRN Administration Anxiety Morphine Sulfate 2 mg 05/28/20 04:45 05/31/20 17:35 Morphine 2 Mg/Ml Vial SLOW IVP 06/27/20 04:45 2 mg Q1H PRN Administration Breakthrough Pain/Agitation Morphine Sulfate 4 mg 05/29/20 17:15 06/01/20 20:50 Morphine 4 Mg/Ml Vial SLOW IVP 4 mg Q15MIN PRN Administration AIRHUNGER - Exam General Appearance: awake alert, ill appearing ENT: normocephalic atraumatic Neck: supple, no JVD Respiratory: normal chest expansion, tachypneic Hosp A/P - Plan "This is an unfortunate 85 years old female who has significant past medical history of hypertension who was found unresponsive at home, she was status post fall about weeks ago prior to admission. Initial work-up in the ED, CT brain showed large intraparenchymal parenchymal hemorrhage involving the left posterior frontal region associated with moderate intraventricular blood. Patient was admitted to ICU under neurosurgery service. Hospitalist was consulted for wide-complex tachycardia. Family decided to withdraw care, and transition to comfort care. Intracranial hemorrhage --not amenable for surgical intervention per neurosurgery --Family decided to withdraw aggressive cares --Cont comfort measures, palliative care is following Wide-complex tachycardia - resolved. --rate was controlled with cardizem gtt. now transitioned to comfort cares Uncontrolled hypertension --comfort care only Acute hypoxic respiratory failure --s/p compassionate extubation" 06/02: Continue comfort care measures with morphine, Ativan, and anticholinergics as needed. The patient will be kept in the hospital over the next 48 hours per family request.
[2020-06-02] MEDS: Morphine 2 MG/ML VIAL SLOW IVP PRN (12:43)
[2020-06-02 19:18] VITALS: BP 80/38; TEMP 100.4
[2020-06-02] MEDS: Morphine 4 MG/ML VIAL SLOW IVP PRN (20:07)
--- NOTE | 2020-06-03 16:15 | PQF ---
CLINICAL DOCUMENTATION CLARIFICATION FORM: Dear TOM Arana Date: 06/03/2020 Please exercise your independent, professional judgment in responding to the clarification form. Clinical indicators are provided on the bottom of this form for your review. Please check appropriate box(s): [ ] Non-Traumatic Intracranial Hemorrhage [ ] Traumatic Intracranial Hemorrhage [ ] Other diagnosis [ ] Unable to determine For continuity of documentation, please document condition throughout progress notes and discharge summary. Thank You. CLINICAL INDICATORS - SIGNS / SYMPTOMS / LABS / RESULTS AND LOCATION IN EMR *ED 05/27: * Patient was brought in by her daughter who states that she found her leaning against the wall sitting on the ground at home. * She states that normally she is awake and alert and fully oriented. Now she is only oriented to her name and is somewhat inattentive. * There are no new signs of trauma *H&P 05/27 (Barney): * Presents to the ED via EMS after being found down unresponsive at home by her daughter earlier this evening and reported that the patient had a fall 1 week ago that resulted in a laceration to the occipital scalp. * Head CT from a week ago shows no active areas of hemorrhage. * CT scan of the brain was performed upon presentation to the ED, it shows a large left frontoparietal hemorrhage extending from the deep white matter structures with extension of the bilateral lateral ventricles, hemorrhage volume is estimated at 40 to 48 ml. * There is a midline shift and minimal surrounding vasogenic edema. * The patient systolic pressures upon presentation is 185 systolic *PN 05/28 (Le): Uncontrolled hypertension RISK FACTORS / RESULTS AND LOCATION IN EMR *H&P 05/27 (Rupert): * Presents to the ED via EMS after being found down unresponsive at home by her daughter earlier this evening and reported that the patient had a fall 1 week ago that resulted in a laceration to the occipital scalp. *PN 05/28 (Le): Uncontrolled hypertension TREATMENTS / RESULTS AND LOCATION IN EMR *H&P 05/27 (Barney): Has been started on Cardene Admit to the ICD with close monitoring q. 1 hour neuro checks, maintenance of systolic pressure below 140 and repeat scanning 6 hours from now. *Reports (EMR): Brain CT 05/27, 05/28 Thank you, Sylwia CDS/Health Care Legal Assistant Signature: Sylwia Mendoza RN, CDS Phone #: [phone] [email or web address] This is a permanent part of the Medical Record [facility]
--- NOTE | 2020-06-06 10:01 | PQF ---
CLINICAL DOCUMENTATION CLARIFICATION FORM: Dear TOM Arana Date: 06/03/2020 Please exercise your independent, professional judgment in responding to the clarification form. Clinical indicators are provided on the bottom of this form for your review. Please check appropriate box(s): [ x ] Non-Traumatic Intracranial Hemorrhage [ ] Traumatic Intracranial Hemorrhage [ ] Other diagnosis [ ] Unable to determine In addition, please specify: Present on Admission (POA): [ x ] Yes [ ] No [ ] Unable to determine For continuity of documentation, please document condition throughout progress notes and discharge summary. Thank You. CLINICAL INDICATORS - SIGNS / SYMPTOMS / LABS / RESULTS AND LOCATION IN EMR *ED 05/27: * Patient was brought in by her daughter who states that she found her leaning against the wall sitting on the ground at home. * There are no new signs of trauma *H&P 05/27 (Barney): * Presents to the ED via EMS after being found down unresponsive at home by her daughter earlier this evening and reported that the patient had a fall 1 week ago that resulted in a laceration to the occipital scalp. * Head CT from a week ago shows no active areas of hemorrhage. * CT scan of the brain was performed upon presentation to the ED, it shows a large left frontoparietal hemorrhage extending from the deep white matter structures with extension of the bilateral lateral ventricles, hemorrhage volume is estimated at 40 to 48 ml. * There is a midline shift and minimal surrounding vasogenic edema. * The patient systolic pressures upon presentation is 185 systolic *PN 05/28 (Le): Uncontrolled hypertension RISK FACTORS / RESULTS AND LOCATION IN EMR *H&P 05/27 (Barney): Presents to the ED via EMS after being found down unresponsive at home by her daughter earlier this evening and reported that the patient had a fall 1 week ago that resulted in a laceration to the occipital scalp. *PN 05/28 (Le): Uncontrolled hypertension TREATMENTS / RESULTS AND LOCATION IN EMR *H&P 05/27 (Barney): Has been started on Cardene Admit to the ICD with close monitoring q. 1 hour neuro checks, maintenance of systolic pressure below 140 and repeat scanning 6 hours from now. *Reports (EMR): Brain CT 05/27, 05/28 Thank you, Sylwia CDS/Pile Driver Engineer Signature: Sylwia Mendoza RN, CDS Phone #: [phone] [email or web address] This is a permanent part of the Medical Record [facility]
== END 2020-06-03 03:05 | disposition expired | DRG 64 ==
LOC: ERS 19:57 → CCU 21:50 → ONC 05-29 23:28
PROVIDERS: ADMIT Neurological Surgery; ATTEND Neurological Surgery
PROC: 5A1945Z Respiratory Ventilation, 24-96 Consecutive Hours (ICD-10-PCS; principal; 2020-05-27)
PROC: 0BH17EZ Insertion of Endotracheal Airway into Trachea, Via Natural or Artificial Opening (ICD-10-PCS; 2020-05-27)
DX: I61.5 Nontraumatic intracerebral hemorrhage, intraventricular (principal); G93.6 Cerebral edema; J96.01 Acute respiratory failure with hypoxia; Z66 Do not resuscitate; I10 Essential (primary) hypertension; R00.0 Tachycardia, unspecified; Z51.5 Encounter for palliative care; Z20.828 Contact with and (suspected) exposure to other viral communicable diseases
CPT/HCPCS: 31500; 36415; 36416; 51702; 70450; 71045; 72125; 72170; 80048; 80053; 81003; 82805; 83735; 85025; 87635; 93005; 93010; 94002; 94003; 96365; 96375; J0171; J2060; J2270; J2405; J2704; J3475; J3480; J3490; J7050; S0028; U0003